=== PATIENT | female | born 1965 | race African-American/Black ===

== ENCOUNTER 2017-05-16 08:08 | Emergency (ER) | payer BC, SELFPAY ==
[2017-05-16] MEDS ORDERED: Acetaminophen 500 MG TAB ONE (09:28)
== END 2017-05-16 09:55 | disposition home or self-care (01) ==
LOC: ERS 08:08
DX: S80.02XA Contusion of left knee, initial encounter (principal); S80.01XA Contusion of right knee, initial encounter; K21.9 Gastro-esophageal reflux disease without esophagitis; E03.9 Hypothyroidism, unspecified; F32.9 Major depressive disorder, single episode, unspecified; V89.2XXA Person injured in unspecified motor-vehicle accident, traffic, initial encounter
CPT/HCPCS: 99284

== ENCOUNTER 2017-05-27 14:25 | Emergency (ER) | payer OTHER, SELFPAY ==
--- NOTE | 2017-05-27 15:31 | RAD ---
LUMBAR SPINE 3 VIEWS: Date: 05/27/17 HISTORY: Back pain. FINDINGS: There are five lumbar-type vertebrae. Pedicles are intact. Minimal spondylolisthesis at the L4-5 leve l is favored to be degenerative given the absence of acute fracture or dislocation. There is osteophy tosis of the lower facets. IMPRESSION: Lumbar spondylosis. No acute osseous abnormalities are demonstrated. POS: JOSE
== END 2017-05-27 15:14 | disposition home or self-care (01) ==
LOC: ERS 14:25
DX: Z79.899 Other long term (current) drug therapy; M47.9 Spondylosis, unspecified; D56.9 Thalassemia, unspecified; F32.9 Major depressive disorder, single episode, unspecified; K21.9 Gastro-esophageal reflux disease without esophagitis; E03.9 Hypothyroidism, unspecified
CPT/HCPCS: 72100